=== PATIENT | female | born 1985 | race Caucasian/White ===

== ENCOUNTER 2021-11-16 09:59 | Inpatient (IN) | payer BC, OTHER ==
[~2021-11-16] VITALS: Ht 162.6 cm; Wt 54.5 kg
[~2021-11-16 09:59] MED LIST: BLOO1EAC70 MC; ESOM40CA PO; ETON1VAG VG; INSU100C4 SQ; INSU100I12 SQ; INSU100V12 SQ; INSU100V37 SQ; ZOF4T PO
[2021-11-16] MEDS ORDERED: ringers solution, lacted 1,000 ML IV ONE (10:35)
[2021-11-16 10:47] LABS: BASOPHILS # (AUTO) 0.1 X10'3 (0-0.2); BASOPHILS % (AUTO) 0.4 % (0-1); EOSINOPHILS % (AUTO) 0.1 % (0-6); HEMATOCRIT 39.1 % (35.0-45.0); HEMOGLOBIN 13.2 g/dl (12.0-16.0); LYMPHOCYTES # (AUTO) 1.6 X10'3 (1.1-4.8); LYMPHOCYTES % (AUTO) 10.1 % (21-51); MEAN CORPUSCULAR HGB CONC 33.7 g/dL (33.0-36.5); MEAN CORPUSCULAR VOLUME 94.8 FL (78-98); MEAN PLATELET VOLUME 8.4 FL (7.4-10.4); MONOCYTES # (AUTO) 0.4 X10'3 (0-0.9); MONOCYTES % (AUTO) 2.3 % (2-12); NEUTROPHILS # (AUTO) 13.6 X10'3 (1.8-7.7); NEUTROPHILS % (AUTO) 87.1 % (42-75); PLATELET COUNT 308 X10'3 (140-440); RED BLOOD COUNT 4.12 X10'6 (4.20-5.60); WHITE BLOOD COUNT 15.7 X10'3 (4.5-11.0)
[2021-11-16 11:18] LABS: CLARITY,URINE CLEAR (Clear); COLOR,URINE YELLOW (Yellow); GLUCOSE, URINE 500 mg/dl (Neg); KETONES,URINE >=80 mg/dl (Neg); LEUKOCYTE ESTERASE ,URINE NEGATIVE (Neg); NITRITES, URINE NEGATIVE (Neg); OCCULT BLOOD,URINE NEGATIVE (Neg); PH,URINE 5.5 (4.8-8.0); PROTEIN,URINE NEGATIVE (Neg); UROBILINOGEN,URINE 0.2 E.U/dL (0.2-1.0)
[2021-11-16 11:19] LABS: ALANINE AMINOTRANSFERASE 35 U/L (12-78); ALBUMIN 3.8 G/DL (3.4-5.0); ALKALINE PHOSPHATASE 89 IU/L (46-116); ANION GAP 18 (8-16); ASPARTATE AMINO TRANSFERASE 29 U/L (10-37); BILIRUBIN,TOTAL 0.4 MG/DL (0.1-1.0); BLOOD UREA NITROGEN 14 MG/DL (7-18); BUN/CREATININE RATIO 14.6 (6.6-38.0); CALCIUM 8.8 MG/DL (8.5-10.1); CHLORIDE 102 MMOL/L (99-107); CREATININE 0.96 MG/DL (0.40-0.90); GLUCOSE 179 MG/DL (70-104); LIPASE 69 U/L (73-393); MAGNESIUM 1.9 MG/DL (1.5-2.4); POTASSIUM 3.9 MMOL/L (3.5-5.1); SODIUM 139 MMOL/L (135-145); TOTAL CARBON DIOXIDE 19.2 MMOL/L (24-32); TOTAL PROTEIN 7.7 G/DL (6.4-8.2); eGFR 67 ML/MIN
[2021-11-16 11:22] LABS: UA COLLECTION TYPE CLN CATCH MIDSTREAM
[2021-11-16 11:26] LABS: URINE AMPHETAMINE SCREEN NEGATIVE (Neg); URINE BARBITUATE SCREEN NEGATIVE (Neg); URINE BENZODIAZEPINES SCREEN NEGATIVE (Neg); URINE CANNABINOID SCREEN POSITIVE (Neg); URINE COCAINE SCREEN NEGATIVE (Neg); URINE METHADONE SCREEN NEGATIVE (Neg); URINE OPIATE SCREEN NEGATIVE (Neg); URINE PHENCYCLIDINE SCREEN NEGATIVE (Neg)
[2021-11-16] MEDS ORDERED: Insulin ASPART (NovoLOG) pen SQ ONE (11:50)
[2021-11-16 11:51] LABS: SQUAMOUS EPITHELIAL CELL,UR FEW /LPF (FEW); WBC,URINE 0-4 /HPF (0-4)
[2021-11-16 11:52] LABS: BACTERIA,URINE NONE SEEN /HPF (Neg); RBC,URINE NONE SEEN /HPF (0-2)
[2021-11-16] MEDS ORDERED: insulin Lispro (HumaLOG) vial - multi-dose SQ ONE (12:05)
[2021-11-16] MEDS: potassium 20mEq/D5LR 1,000 ML IV SCH (12:16)
[2021-11-16] MEDS ORDERED: magnesium 2GM in 50ml NS 50 ML IV PRN (12:20)
[2021-11-16] MEDS ORDERED: magnesium 4gm in 100ml NS 100 ML IV PRN (12:20)
[2021-11-16] MEDS ORDERED: insulin regular, human U-100 3ml vial - multi-dose IV PRN (12:20)
[2021-11-16] MEDS ORDERED: sodium bicarbonate (8.4%) inj. 100 MEQ in dextrose 5% water 500ml 500 ML IV PRN (12:20)
[2021-11-16] MEDS ORDERED: acetaminophen 325mg tablet PO PRN (12:20)
[2021-11-16] MEDS ORDERED: POTASSIUM BICARB 20meq eff tab 20 MEQ TABLET.EFF PO PRN ×2 (12:20)
[2021-11-16] MEDS ORDERED: sodium phosphate inj. 15 MMOL in dextrose 5%-water 250 ML IV PRN (12:20)
[2021-11-16] MEDS ORDERED: normal saline 1000ml 1,000 ML IV SCH (12:20)
[2021-11-16] MEDS ORDERED: magnesium hydroxide 30ml (MOM) UD suspension PO PRN (12:20)
[2021-11-16] MEDS ORDERED: sodium phosphate inj. 30 MMOL in dextrose 5%-water 250 ML IV PRN (12:20)
[2021-11-16] MEDS ORDERED: sodium bicarbonate (8.4%) inj. 50 MEQ in dextrose 5% water 500ml 250 ML IV PRN (12:20)
[2021-11-16] MEDS ORDERED: mag hydrox/Alum hydrox/simeth 30ml oral suspension PO PRN (12:20)
--- NOTE | 2021-11-16 12:45 | NUR ---
Pt c/o n/v and palpations after the new IVF of D5LR with k started. Stopped fluids.
[2021-11-16 12:56] LABS: ALBUMIN 3.7 G/DL (3.4-5.0); ANION GAP 19 (8-16); BLOOD UREA NITROGEN 12 MG/DL (7-18); CALCIUM 8.8 MG/DL (8.5-10.1); CHLORIDE 99 MMOL/L (99-107); GLUCOSE 215 MG/DL (70-104); PHOSPHORUS 2.7 MG/DL (2.3-4.5); POTASSIUM 4.4 MMOL/L (3.5-5.1); SODIUM 135 MMOL/L (135-145); TOTAL CARBON DIOXIDE 17.5 MMOL/L (24-32); eGFR 82 ML/MIN
[2021-11-16] MEDS: normal saline 1000ml 1,000 ML IV SCH ×3 (13:15→20:20)
[2021-11-16] MEDS: nicotine 14mg patch - 24hr TD SCH (13:25)
--- NOTE | 2021-11-16 13:47 | NUR ---
Report given to BOOGIE Groves.
[2021-11-16] MEDS: ondansetron/PF 4mg/2ml inj IV PRN (13:54)
[2021-11-16 14:00] VITALS: BP 108/54
--- NOTE | 2021-11-16 14:14 | NUR ---
Patient in room PCU 3012. I have received report from Cindy HYMAN and had the opportunity to ask questions and assume patient care.
--- NOTE | 2021-11-16 14:15 | NUR ---
PAGER ID: [phone] MESSAGE: [id number] Nargis Ruiz 1410 Blood sugar 300. [phone] Dorothy
[2021-11-16] MEDS ORDERED: INSU100V46 SQ (14:43)
[2021-11-16] MEDS ORDERED: LANTUS SQ (14:43)
[2021-11-16] MEDS ORDERED: LEVO75TA98 PO (14:43)
--- NOTE | 2021-11-16 15:57 | NUR ---
PAGER ID: [phone] MESSAGE: [id number] Nargis Ruiz is vomiting blood tinged emesis, had Zofran IV, can we have something else ordered for vomiting? [phone] Dorothy Thank you!
[2021-11-16] MEDS: metoclopramide 5 mg/ml inj IV PRN (17:02)
--- NOTE | 2021-11-16 19:30 | NUR ---
Problems reprioritized. Patient report given, questions answered & plan of care reviewed with Clarence HYMAN.
[2021-11-16] MEDS: Insulin Reg/NS 100units/100mL 100 ML IV SCH (19:36)
[2021-11-16] MEDS: K and/or MAG REPLACEMENT MC SCH (20:00)
[2021-11-16] MEDS: docusate sod 100mg capsule PO SCH (20:00)
[2021-11-16] MEDS: enoxaparin 40mg/0.4ml syringe SQ SCH (21:08)
[2021-11-16 22:00] VITALS: BP 116/58
[2021-11-16] MEDS: guaiFENesin/codeine phos 10ml UD oral syrup PO PRN (22:06)
[2021-11-16] MEDS: potassium CL 20mEq in D5-1/2NS 1,000 ML IV PRN (23:35)
[2021-11-17] MEDS: normal saline 1000ml 1,000 ML IV SCH ×6 (00:20→20:20)
[2021-11-17 02:00] VITALS: BP 100/50
[2021-11-17] MEDS: potassium CL 20mEq in D5-1/2NS 1,000 ML IV PRN ×3 (04:27→22:55)
[2021-11-17] MEDS ORDERED: Insulin Reg/NS 100units/100mL 100 ML IV SCH (04:35)
--- NOTE | 2021-11-17 04:48 | NUR ---
Pt has was vomiting multiple times earlier in the shift. emesis was watery and had a green tint. pt complained of sore thought. Doctor ordered Robitussin with codeine. pt complained of shortness of breath. Applied NC 2 liters. O2 saturation readings were the same with and without the O2. 97 to 98%. 2200 pt temp 99.1, 0200 pt temp 100.2
[2021-11-17 06:00] VITALS: BP 106/72
--- NOTE | 2021-11-17 06:36 | NUR ---
Report was given to Laina HYMAN
[2021-11-17 07:23] LABS: BASOPHILS % (AUTO) 0.1 % (0-1); EOSINOPHILS % (AUTO) 0 % (0-6); HEMATOCRIT 35.3 % (35.0-45.0); LYMPHOCYTES # (AUTO) 2.2 X10'3 (1.1-4.8); LYMPHOCYTES % (AUTO) 9.1 % (21-51); MEAN CORPUSCULAR HEMOGLOBIN 31.8 PG (27.0-31.0); MEAN CORPUSCULAR HGB CONC 34.1 g/dL (33.0-36.5); MEAN CORPUSCULAR VOLUME 93.5 FL (78-98); MEAN PLATELET VOLUME 8.3 FL (7.4-10.4); MONOCYTES # (AUTO) 1.9 X10'3 (0-0.9); MONOCYTES % (AUTO) 7.6 % (2-12); NEUTROPHILS # (AUTO) 20.5 X10'3 (1.8-7.7); NEUTROPHILS % (AUTO) 83.2 % (42-75); PLATELET COUNT 368 X10'3 (140-440); RED BLOOD COUNT 3.77 X10'6 (4.20-5.60); WHITE BLOOD COUNT 24.6 X10'3 (4.5-11.0)
[2021-11-17 07:37] LABS: ALBUMIN 3.4 G/DL (3.4-5.0); ANION GAP 11 (8-16); BLOOD UREA NITROGEN 10 MG/DL (7-18); BUN/CREATININE RATIO 10.3 (6.6-38.0); CALCIUM 8.1 MG/DL (8.5-10.1); CHLORIDE 108 MMOL/L (99-107); CREATININE 0.97 MG/DL (0.40-0.90); GLUCOSE 108 MG/DL (70-104); MAGNESIUM 1.7 MG/DL (1.5-2.4); PHOSPHORUS 1.3 MG/DL (2.3-4.5); SODIUM 137 MMOL/L (135-145); TOTAL CARBON DIOXIDE 17.6 MMOL/L (24-32); eGFR 66 ML/MIN
[2021-11-17] MEDS: potassium 20mEq/D5LR 1,000 ML IV SCH (07:50)
[2021-11-17] MEDS: nicotine 14mg patch - 24hr TD SCH (08:00)
[2021-11-17] MEDS: docusate sod 100mg capsule PO SCH ×2 (08:00→19:53)
[2021-11-17] MEDS: K and/or MAG REPLACEMENT MC SCH (08:00)
[2021-11-17] MEDS: levoTHYROXINE 75mcg tablet PO SCH (08:00)
[2021-11-17] MEDS ORDERED: CefTRIAXone/D5W-Rocephin 1gm 50 ML IV ONE (08:10)
--- NOTE | 2021-11-17 08:14 | NUR ---
Initial: Pt admitted w/ DKA, has hx of T1DM per EMR, however there is no A1c for this pt. TC to RN recommendation to obtain A1c if MD agreeable. Pt currently NPO. Limited nutrition interventions at this time, will continue to monitor. Recs; 1. Advance to Carb control diet as tolerated 2. Obtain HbA1c if MD agreeable 3. Bowel care per rx 4. Scaled wts 5. Monitor need for DM ed pending A1c Addendum: 11/17/21 at [address] Amended: Links added.
[2021-11-17] MEDS: insulin Lispro (HumaLOG) vial - multi-dose SQ SCH ×3 (09:00→18:00)
--- NOTE | 2021-11-17 09:50 | NUR ---
Paged Dr. Valdivia regarding pts BS still trending down. PAGER ID: [phone] MESSAGE: [id number], Sara [email or web address] Pts blood sugar is now 68 after the popsicle. It didn't help the sugar level or the dry heaves. Would you like me to increase the D5 rate? Laina U [phone].
[2021-11-17] MEDS: ondansetron/PF 4mg/2ml inj IV PRN ×2 (10:52→23:09)
[2021-11-17 11:00] VITALS: BP 105/59
--- NOTE | 2021-11-17 13:25 | NUR ---
Paged Dr. Valdivia regarding if i can switch fluids. PAGER ID: [phone] MESSAGE: [id number], Sara Barillas. Pt needs new bag of fluids hung, do you mind if I switch her to the KCL 20meq in D5W 1/2 NS? Instead of the lactated ringers solution? It is already available in the [facility]. Laina [facility] [id number].
--- NOTE | 2021-11-17 13:38 | NUR ---
Paged Dr. Valdivia regarding patient needing an A1C since shes never had one. PAGER ID: [phone] MESSAGE: [id number], Sara Barillas. Retail Customer Service Specialist just called and asked if you wanted to order an A1C, apparently she has never had one. Laina [facility] [id number].
[2021-11-17] MEDS: metoclopramide 5 mg/ml inj IV PRN (14:10)
[2021-11-17 15:41] LABS: HEMOGLOBIN A1C 8.3 % (4.5-6.2)
[2021-11-17 16:36] LABS: ANION GAP 15 (8-16); BLOOD UREA NITROGEN 6 MG/DL (7-18); BUN/CREATININE RATIO 8.3 (6.6-38.0); CALCIUM 7.7 MG/DL (8.5-10.1); CHLORIDE 105 MMOL/L (99-107); CREATININE 0.72 MG/DL (0.40-0.90); GLUCOSE 165 MG/DL (70-104); POTASSIUM 3.3 MMOL/L (3.5-5.1); SODIUM 136 MMOL/L (135-145); TOTAL CARBON DIOXIDE 16.3 MMOL/L (24-32); eGFR > 90 ML/MIN
[2021-11-17 17:41] LABS: URINE HCG NEGATIVE (NEG)
[2021-11-17] MEDS: Insulin Reg/NS 100units/100mL 100 ML IV SCH (18:44)
[2021-11-17] MEDS ORDERED: iohexol 300mg/ml 100ml inj. ONE (19:00)
--- NOTE | 2021-11-17 19:01 | NUR ---
Problems reprioritized. Patient report given, questions answered & plan of care reviewed with Clarence HYMAN, patient stable at transfer of care.
[2021-11-17] MEDS: potassium CL 10mEq/100ml bag 100 ML IV PRN ×3 (19:50→23:58)
[2021-11-17] MEDS: enoxaparin 40mg/0.4ml syringe SQ SCH (19:53)
[2021-11-17] MEDS: guaiFENesin/codeine phos 10ml UD oral syrup PO PRN (22:17)
[2021-11-18] MEDS: normal saline 1000ml 1,000 ML IV SCH ×6 (00:20→20:20)
[2021-11-18] MEDS: metoclopramide 5 mg/ml inj IV PRN (00:55)
[2021-11-18] MEDS: potassium CL 10mEq/100ml bag 100 ML IV PRN (01:03)
[2021-11-18 02:00] VITALS: BP 119/65
[2021-11-18] MEDS: potassium CL 20mEq in D5-1/2NS 1,000 ML IV PRN (03:07)
[2021-11-18] MEDS: Insulin Reg/NS 100units/100mL 100 ML IV SCH (04:20)
[2021-11-18] MEDS: ondansetron/PF 4mg/2ml inj IV PRN (05:19)
[2021-11-18 06:00] VITALS: BP 117/75
--- NOTE | 2021-11-18 06:00 | NUR ---
recieved report from Clarence HYMAN, assuming care
[2021-11-18] MEDS: dextrose 50%-water 50ml dispensing syringe IV PRN (07:06)
[2021-11-18] MEDS: levoTHYROXINE 75mcg tablet PO SCH (08:00)
[2021-11-18] MEDS: nicotine 14mg patch - 24hr TD SCH (08:00)
[2021-11-18] MEDS: docusate sod 100mg capsule PO SCH ×2 (08:00→20:00)
[2021-11-18] MEDS: K and/or MAG REPLACEMENT MC SCH ×2 (08:00→20:00)
[2021-11-18 08:01] LABS: BASOPHILS % (AUTO) 0.3 % (0-1); EOSINOPHILS % (AUTO) 0 % (0-6); HEMATOCRIT 36.6 % (35.0-45.0); HEMOGLOBIN 12.2 g/dl (12.0-16.0); LYMPHOCYTES # (AUTO) 1.9 X10'3 (1.1-4.8); LYMPHOCYTES % (AUTO) 13.6 % (21-51); MEAN CORPUSCULAR HEMOGLOBIN 31.2 PG (27.0-31.0); MEAN CORPUSCULAR HGB CONC 33.2 g/dL (33.0-36.5); MEAN CORPUSCULAR VOLUME 93.7 FL (78-98); MEAN PLATELET VOLUME 9.7 FL (7.4-10.4); MONOCYTES # (AUTO) 0.8 X10'3 (0-0.9); MONOCYTES % (AUTO) 5.9 % (2-12); NEUTROPHILS # (AUTO) 11.1 X10'3 (1.8-7.7); NEUTROPHILS % (AUTO) 80.2 % (42-75); PLATELET COUNT 217 X10'3 (140-440); RED BLOOD COUNT 3.91 X10'6 (4.20-5.60); RED CELL DISTRIBUTION WIDTH 13.1 % (11.5-14.5); WHITE BLOOD COUNT 13.8 X10'3 (4.5-11.0)
[2021-11-18] MEDS: CefTRIAXone/D5W-Rocephin 1gm 50 ML IV SCH (08:37)
[2021-11-18 08:38] LABS: ALANINE AMINOTRANSFERASE 37 U/L (12-78); ALKALINE PHOSPHATASE 75 IU/L (46-116); ANION GAP 11 (8-16); ASPARTATE AMINO TRANSFERASE 44 U/L (10-37); BILIRUBIN,TOTAL 0.4 MG/DL (0.1-1.0); BLOOD UREA NITROGEN 2 MG/DL (7-18); BUN/CREATININE RATIO 3.8 (6.6-38.0); CALCIUM 7.5 MG/DL (8.5-10.1); CHLORIDE 106 MMOL/L (99-107); CREATININE 0.52 MG/DL (0.40-0.90); MAGNESIUM 1.5 MG/DL (1.5-2.4); POTASSIUM 3.6 MMOL/L (3.5-5.1); SODIUM 136 MMOL/L (135-145); TOTAL CARBON DIOXIDE 18.7 MMOL/L (24-32); TOTAL PROTEIN 6.1 G/DL (6.4-8.2); eGFR > 90 ML/MIN
[2021-11-18 08:42] LABS: GLUCOSE 41 MG/DL (70-104)
[2021-11-18] MEDS ORDERED: LIDOcaine Viscous 15ml cup MM PRN (08:45)
[2021-11-18] MEDS: proCHLORperazine 10 MG/2 ml inj IV PRN ×2 (08:58→19:12)
[2021-11-18] MEDS: insulin Lispro (HumaLOG) vial - multi-dose SQ SCH ×3 (09:00→18:00)
--- NOTE | 2021-11-18 09:12 | NUR ---
Per Dr Valdivia. Added compazine and lidocaine swish and spit per MD orders. MD ordered HIDA scan but will hold off for now and consult Dr Mason. Ok to keep insulin gtt off and start Kcl 20Meq in D5 @ 150. Decrease to 100ml/hr if BG higher.
[2021-11-18] MEDS ORDERED: NORMAL SALINE IV ONE (09:35)
[2021-11-18] MEDS ORDERED: SINCALIDE IV ONE (09:35)
[2021-11-18] MEDS: Potassium Cl inj 20 MEQ in dextrose 5%-water 990 ML IV SCH ×2 (10:43→19:45)
--- NOTE | 2021-11-18 11:04 | NUR ---
Pt taken to Hida Scan in Nuc Med area via W/C with IV Insulin and fluid drips. Addendum: 11/18/21 at 1134 by Rafita Siu RN Amended: Links added.
[2021-11-18 13:29] LABS: PHOSPHORUS 0.9 MG/DL (2.3-4.5)
[2021-11-18 14:32] LABS: H PYLORI ANTIBODY NEGATIVE (Neg)
--- NOTE | 2021-11-18 14:47 | NUR ---
F/u: Patient's A1c is 8.3%. Per EMR pt with emesis today. Pt would benefit from DM education once appropriate. Will continue to follow. Addendum: 11/18/21 at [address] Amended: Links added.
[2021-11-18 15:00] VITALS: BP 135/77
--- NOTE | 2021-11-18 16:06 | NUR ---
Paged PICC nurse [phone]. Nargis Ruiz. Pls assist with midline. Attempted PIV x 4. DKA patient with multiple replacements. Thanks
--- NOTE | 2021-11-18 16:08 | NUR ---
pt stated that she is giving permission to speak with her sister Kavitha Tejeda MD
[2021-11-18 16:45] LABS: ALANINE AMINOTRANSFERASE 42 U/L (12-78); ALBUMIN 3.1 G/DL (3.4-5.0); ALKALINE PHOSPHATASE 84 IU/L (46-116); ANION GAP 12 (8-16); ASPARTATE AMINO TRANSFERASE 44 U/L (10-37); BILIRUBIN,TOTAL 0.5 MG/DL (0.1-1.0); BLOOD UREA NITROGEN 2 MG/DL (7-18); BUN/CREATININE RATIO 3.3 (6.6-38.0); CHLORIDE 99 MMOL/L (99-107); CREATININE 0.61 MG/DL (0.40-0.90); GLUCOSE 146 MG/DL (70-104); POTASSIUM 3.3 MMOL/L (3.5-5.1); SODIUM 133 MMOL/L (135-145); TOTAL CARBON DIOXIDE 21.6 MMOL/L (24-32); TOTAL PROTEIN 6.2 G/DL (6.4-8.2); eGFR > 90 ML/MIN
[2021-11-18 16:49] LABS: BASOPHILS % (AUTO) 0.1 % (0-1); EOSINOPHILS % (AUTO) 0 % (0-6); HEMATOCRIT 36.3 % (35.0-45.0); HEMOGLOBIN 12.1 g/dl (12.0-16.0); LYMPHOCYTES # (AUTO) 1.6 X10'3 (1.1-4.8); LYMPHOCYTES % (AUTO) 13.8 % (21-51); MEAN CORPUSCULAR HEMOGLOBIN 31.3 PG (27.0-31.0); MEAN CORPUSCULAR HGB CONC 33.5 g/dL (33.0-36.5); MEAN CORPUSCULAR VOLUME 93.5 FL (78-98); MEAN PLATELET VOLUME 8.2 FL (7.4-10.4); MONOCYTES # (AUTO) 0.7 X10'3 (0-0.9); NEUTROPHILS # (AUTO) 9.5 X10'3 (1.8-7.7); NEUTROPHILS % (AUTO) 80.1 % (42-75); PLATELET COUNT 264 X10'3 (140-440); RED BLOOD COUNT 3.88 X10'6 (4.20-5.60); RED CELL DISTRIBUTION WIDTH 12.9 % (11.5-14.5); WHITE BLOOD COUNT 11.8 X10'3 (4.5-11.0)
--- NOTE | 2021-11-18 17:05 | NUR ---
Paged PAGER ID: [phone] MESSAGE: [id number]. Sara. Call me re: new lab values pls. Marc, Krystin [phone]
--- NOTE | 2021-11-18 17:25 | NUR ---
Per MD Valdivia: CO2 21.6 and anion gap 12. Pt is still not eating and still having emesis. Per MD, keep on gtt as is right now through NOC.
[2021-11-18 18:00] VITALS: BP 128/67
--- NOTE | 2021-11-18 18:00 | NUR ---
Patient in room PCU 3012. I have received report from Krystin HYMAN and had the opportunity to ask questions and assume patient care.
--- NOTE | 2021-11-18 18:58 | NUR ---
Student documentation: I have reviewed and agree with all interventions, assessments performed and documented by Soheila.
[2021-11-18] MEDS: enoxaparin 40mg/0.4ml syringe SQ SCH (20:00)
[2021-11-18 21:52] LABS: BASOPHILS % (AUTO) 0.1 % (0-1); EOSINOPHILS % (AUTO) 0.1 % (0-6); HEMATOCRIT 34.4 % (35.0-45.0); HEMOGLOBIN 11.8 g/dl (12.0-16.0); LYMPHOCYTES # (AUTO) 1.7 X10'3 (1.1-4.8); LYMPHOCYTES % (AUTO) 16.7 % (21-51); MEAN CORPUSCULAR HGB CONC 34.2 g/dL (33.0-36.5); MEAN CORPUSCULAR VOLUME 93.6 FL (78-98); MEAN PLATELET VOLUME 8.6 FL (7.4-10.4); MONOCYTES # (AUTO) 0.5 X10'3 (0-0.9); MONOCYTES % (AUTO) 5.3 % (2-12); NEUTROPHILS # (AUTO) 7.9 X10'3 (1.8-7.7); NEUTROPHILS % (AUTO) 77.8 % (42-75); PLATELET COUNT 235 X10'3 (140-440); RED BLOOD COUNT 3.68 X10'6 (4.20-5.60); WHITE BLOOD COUNT 10.1 X10'3 (4.5-11.0)
[2021-11-18 22:00] VITALS: BP 125/68
[2021-11-18 22:01] LABS: ALANINE AMINOTRANSFERASE 40 U/L (12-78); ALBUMIN 3.1 G/DL (3.4-5.0); ALKALINE PHOSPHATASE 85 IU/L (46-116); ANION GAP 11 (8-16); ASPARTATE AMINO TRANSFERASE 41 U/L (10-37); BILIRUBIN,TOTAL 0.5 MG/DL (0.1-1.0); CHLORIDE 101 MMOL/L (99-107); GLUCOSE 132 MG/DL (70-104); POTASSIUM 3.1 MMOL/L (3.5-5.1); SODIUM 136 MMOL/L (135-145); TOTAL CARBON DIOXIDE 24.2 MMOL/L (24-32); TOTAL PROTEIN 6.1 G/DL (6.4-8.2); eGFR > 90 ML/MIN
[2021-11-18 22:30] LABS: CREATININE 0.51 MG/DL (0.40-0.90)
[2021-11-18 22:34] LABS: BLOOD UREA NITROGEN 1 MG/DL (7-18)
[2021-11-19] MEDS: Insulin Reg/NS 100units/100mL 100 ML IV SCH (00:20)
[2021-11-19] MEDS: normal saline 1000ml 1,000 ML IV SCH ×6 (00:20→20:20)
[2021-11-19 02:00] VITALS: BP 120/72
[2021-11-19 04:48] LABS: BASOPHILS % (AUTO) 0.2 % (0-1); EOSINOPHILS % (AUTO) 0 % (0-6); HEMATOCRIT 36.9 % (35.0-45.0); HEMOGLOBIN 12.3 g/dl (12.0-16.0); LYMPHOCYTES # (AUTO) 1.2 X10'3 (1.1-4.8); LYMPHOCYTES % (AUTO) 11.4 % (21-51); MEAN CORPUSCULAR HEMOGLOBIN 31.6 PG (27.0-31.0); MEAN CORPUSCULAR HGB CONC 33.5 g/dL (33.0-36.5); MEAN CORPUSCULAR VOLUME 94.3 FL (78-98); MEAN PLATELET VOLUME 9.1 FL (7.4-10.4); MONOCYTES # (AUTO) 0.6 X10'3 (0-0.9); NEUTROPHILS # (AUTO) 8.8 X10'3 (1.8-7.7); NEUTROPHILS % (AUTO) 82.4 % (42-75); PLATELET COUNT 261 X10'3 (140-440); RED BLOOD COUNT 3.91 X10'6 (4.20-5.60); WHITE BLOOD COUNT 10.7 X10'3 (4.5-11.0)
[2021-11-19 04:56] LABS: ALANINE AMINOTRANSFERASE 39 U/L (12-78); ALBUMIN 3.2 G/DL (3.4-5.0); ALKALINE PHOSPHATASE 90 IU/L (46-116); ANION GAP 15 (8-16); ASPARTATE AMINO TRANSFERASE 36 U/L (10-37); BILIRUBIN,TOTAL 0.7 MG/DL (0.1-1.0); BLOOD UREA NITROGEN 2 MG/DL (7-18); BUN/CREATININE RATIO 3.1 (6.6-38.0); CALCIUM 8.4 MG/DL (8.5-10.1); CHLORIDE 98 MMOL/L (99-107); CREATININE 0.65 MG/DL (0.40-0.90); GLUCOSE 279 MG/DL (70-104); MAGNESIUM 1.5 MG/DL (1.5-2.4); POTASSIUM 3.2 MMOL/L (3.5-5.1); SODIUM 134 MMOL/L (135-145); TOTAL CARBON DIOXIDE 20.9 MMOL/L (24-32); TOTAL PROTEIN 6.3 G/DL (6.4-8.2); eGFR > 90 ML/MIN
[2021-11-19] MEDS: proCHLORperazine 10 MG/2 ml inj IV PRN (05:10)
[2021-11-19 06:00] VITALS: BP 133/86
--- NOTE | 2021-11-19 07:19 | NUR ---
Problems reprioritized. Patient report given, questions answered & plan of care reviewed with Nya HYMAN.
[2021-11-19] MEDS: nicotine 14mg patch - 24hr TD SCH (08:00)
[2021-11-19] MEDS: levoTHYROXINE 75mcg tablet PO SCH (08:00)
[2021-11-19] MEDS: K and/or MAG REPLACEMENT MC SCH ×2 (08:00→20:00)
[2021-11-19] MEDS: CefTRIAXone/D5W-Rocephin 1gm 50 ML IV SCH (08:00)
[2021-11-19] MEDS: docusate sod 100mg capsule PO SCH ×2 (08:00→20:00)
[2021-11-19] MEDS: Potassium Cl inj 20 MEQ in dextrose 5%-water 990 ML IV SCH ×2 (08:19→14:18)
[2021-11-19] MEDS: insulin Lispro (HumaLOG) vial - multi-dose SQ SCH ×3 (09:00→18:00)
[2021-11-19 09:50] LABS: ALANINE AMINOTRANSFERASE 36 U/L (12-78); ALBUMIN 2.9 G/DL (3.4-5.0); ALBUMIN/GLOBULIN RATIO 0.9 (1.1-1.5); ALKALINE PHOSPHATASE 86 IU/L (46-116); ANION GAP 13 (8-16); ASPARTATE AMINO TRANSFERASE 27 U/L (10-37); BILIRUBIN,TOTAL 0.5 MG/DL (0.1-1.0); BLOOD UREA NITROGEN 3 MG/DL (7-18); BUN/CREATININE RATIO 3.8 (6.6-38.0); CALCIUM 8.3 MG/DL (8.5-10.1); CHLORIDE 97 MMOL/L (99-107); CREATININE 0.79 MG/DL (0.40-0.90); GLUCOSE 227 MG/DL (70-104); POTASSIUM 3.1 MMOL/L (3.5-5.1); SODIUM 133 MMOL/L (135-145); TOTAL CARBON DIOXIDE 23.4 MMOL/L (24-32); TOTAL PROTEIN 6.1 G/DL (6.4-8.2); eGFR 83 ML/MIN
[2021-11-19] MEDS: potassium CL 10mEq/100ml bag 100 ML IV PRN ×2 (10:21→11:45)
[2021-11-19 11:00] VITALS: BP 135/76
[2021-11-19] MEDS ORDERED: fluconazole-Diflucan 200mg/NS 100 ML IV SCH (11:35)
[2021-11-19] MEDS: pantoprazole 40MG/NS 100ML BAG 100 ML IV SCH ×2 (11:40→11:55)
[2021-11-19] MEDS: sucralfate 1 gm tablet PO SCH ×3 (12:00→21:33)
--- NOTE | 2021-11-19 12:24 | NUR ---
Pt. remains unable to eat.
[2021-11-19 13:31] LABS: ALANINE AMINOTRANSFERASE 34 U/L (12-78); ALKALINE PHOSPHATASE 89 IU/L (46-116); ANION GAP 17 (8-16); ASPARTATE AMINO TRANSFERASE 23 U/L (10-37); BILIRUBIN,TOTAL 0.6 MG/DL (0.1-1.0); BLOOD UREA NITROGEN 1 MG/DL (7-18); BUN/CREATININE RATIO 1.8 (6.6-38.0); CHLORIDE 96 MMOL/L (99-107); CREATININE 0.57 MG/DL (0.40-0.90); GLUCOSE 228 MG/DL (70-104); POTASSIUM 3.5 MMOL/L (3.5-5.1); SODIUM 134 MMOL/L (135-145); TOTAL CARBON DIOXIDE 21.5 MMOL/L (24-32); TOTAL PROTEIN 6.1 G/DL (6.4-8.2); eGFR > 90 ML/MIN
[2021-11-19 15:00] VITALS: BP 137/79
--- NOTE | 2021-11-19 16:45 | NUR ---
Dr. Valdivia wanted to try 2units/hr insulin drip to close the anion gap.
--- NOTE | 2021-11-19 16:46 | NUR ---
Pt. has difficulty swallowing. She refused oral medications today. A total of 900ml of NS was given. The DKA protocol maintained the glucose levels close to 200. Pt. is started on new IV medications for her throat issues and gag reflex complication. Continues to refuse oral intake at this time.
[2021-11-19 17:13] LABS: ALANINE AMINOTRANSFERASE 34 U/L (12-78); ALBUMIN/GLOBULIN RATIO 0.9 (1.1-1.5); ALKALINE PHOSPHATASE 91 IU/L (46-116); ANION GAP 15 (8-16); ASPARTATE AMINO TRANSFERASE 20 U/L (10-37); BILIRUBIN,TOTAL 0.4 MG/DL (0.1-1.0); BLOOD UREA NITROGEN 1 MG/DL (7-18); BUN/CREATININE RATIO 1.6 (6.6-38.0); CALCIUM 8.2 MG/DL (8.5-10.1); CHLORIDE 97 MMOL/L (99-107); CREATININE 0.64 MG/DL (0.40-0.90); GLUCOSE 192 MG/DL (70-104); POTASSIUM 3.2 MMOL/L (3.5-5.1); SODIUM 136 MMOL/L (135-145); TOTAL CARBON DIOXIDE 24.4 MMOL/L (24-32); TOTAL PROTEIN 6.4 G/DL (6.4-8.2); eGFR > 90 ML/MIN
[2021-11-19 18:00] VITALS: BP 138/78
--- NOTE | 2021-11-19 18:30 | NUR ---
Patient in room PCU 3012. I have received report from Nya HYMAN and had the opportunity to ask questions and assume patient care.
[2021-11-19] MEDS ORDERED: pantoprazole 40MG/NS 100ML BAG 100 ML IV SCH (20:00)
[2021-11-19] MEDS: enoxaparin 40mg/0.4ml syringe SQ SCH (21:35)
[2021-11-19 21:36] LABS: ANION GAP 11 (8-16); BLOOD UREA NITROGEN 1 MG/DL (7-18); BUN/CREATININE RATIO 1.7 (6.6-38.0); CALCIUM 8.2 MG/DL (8.5-10.1); CHLORIDE 99 MMOL/L (99-107); GLUCOSE 142 MG/DL (70-104); MAGNESIUM 1.5 MG/DL (1.5-2.4); PHOSPHORUS 1.3 MG/DL (2.3-4.5); POTASSIUM 3.2 MMOL/L (3.5-5.1); SODIUM 135 MMOL/L (135-145); TOTAL CARBON DIOXIDE 25.1 MMOL/L (24-32); eGFR > 90 ML/MIN
[2021-11-19] MEDS: Neutra Phos packet PO PRN (22:00)
[2021-11-19] MEDS ORDERED: magnesium 4gm in 100ml NS 100 ML IV PRN (23:45)
[2021-11-19] MEDS ORDERED: magnesium 2GM in 50ml NS 50 ML IV PRN (23:45)
[2021-11-19] MEDS ORDERED: magnesium Cl slow-release 64mg tablet PO PRN (23:45)
[2021-11-19] MEDS ORDERED: POTASSIUM BICARB 20meq eff tab 20 MEQ TABLET.EFF PO PRN (23:45)
[2021-11-20] MEDS: normal saline 1000ml 1,000 ML IV SCH ×2 (00:20→04:20)
[2021-11-20 02:00] VITALS: BP 127/71
[2021-11-20 02:04] LABS: MAGNESIUM 1.5 MG/DL (1.5-2.4)
[2021-11-20 03:33] LABS: ALANINE AMINOTRANSFERASE 32 U/L (12-78); ALBUMIN 2.9 G/DL (3.4-5.0); ALBUMIN/GLOBULIN RATIO 0.9 (1.1-1.5); ALKALINE PHOSPHATASE 82 IU/L (46-116); ANION GAP 9 (8-16); ASPARTATE AMINO TRANSFERASE 18 U/L (10-37); BILIRUBIN,TOTAL 0.4 MG/DL (0.1-1.0); CALCIUM 8.3 MG/DL (8.5-10.1); CHLORIDE 100 MMOL/L (99-107); GLUCOSE 104 MG/DL (70-104); PHOSPHORUS 1.9 MG/DL (2.3-4.5); SODIUM 137 MMOL/L (135-145); TOTAL CARBON DIOXIDE 28.4 MMOL/L (24-32); eGFR > 90 ML/MIN
[2021-11-20] MEDS: Neutra Phos packet PO PRN (03:39)
[2021-11-20 03:44] LABS: CREATININE 0.55 MG/DL (0.40-0.90)
[2021-11-20 03:55] LABS: BLOOD UREA NITROGEN 0 MG/DL (7-18)
[2021-11-20] MEDS: dextrose 50%-water 50ml dispensing syringe IV PRN (04:01)
[2021-11-20] MEDS: Potassium Cl inj 20 MEQ in dextrose 5%-water 990 ML IV SCH (04:53)
[2021-11-20] MEDS: potassium CL 10mEq/100ml bag 100 ML IV PRN ×2 (04:53→06:20)
[2021-11-20] MEDS ORDERED: Insulin Reg/NS 100units/100mL 100 ML IV SCH (05:55)
--- NOTE | 2021-11-20 07:00 | NUR ---
Problems reprioritized. Patient report given, questions answered & plan of care reviewed with Nay HYMAN.
--- NOTE | 2021-11-20 08:35 | NUR ---
Page to Dr. Valdivia Pt. desires to AMA [id number] SaraNargis Has informed nursing that she is leaving the hospital AMA this morning despite our rational explanation as to why she shouldn't insulin drip is still on. Refusing care i.e.blood draws ect. Thank You Nya HYMAN [phone]
--- NOTE | 2021-11-20 09:00 | NUR ---
Pt. insists on leaving despite much encouragement to stay and was not willing to wait to talk with Dr. Valdivia this morning. She is instructed to return to the emergency department for further care as it is needed.
== END 2021-11-20 08:55 | disposition left against medical advice (07) | DRG 639 ==
LOC: ER 09:59 → ED HOLD 12:26 → PCU 3S 13:58
PROVIDERS: ADMIT Family Medicine; ATTEND Family Medicine
PROC: BW211ZZ Computerized Tomography (CT Scan) of Abdomen and Pelvis using Low Osmolar Contrast (ICD-10-PCS; 2021-11-17)
PROC: CF1C1ZZ Planar Nuclear Medicine Imaging of Hepatobiliary System, All using Technetium 99m (Tc-99m) (ICD-10-PCS; principal; 2021-11-18)
DX: E10.10 Type 1 diabetes mellitus with ketoacidosis without coma (principal); D72.829 Elevated white blood cell count, unspecified; E03.9 Hypothyroidism, unspecified; F12.90 Cannabis use, unspecified, uncomplicated; F17.210 Nicotine dependence, cigarettes, uncomplicated; B37.9 Candidiasis, unspecified; J39.2 Other diseases of pharynx; Z53.29 Procedure and treatment not carried out because of patient's decision for other reasons; Z79.4 Long term (current) use of insulin; Z88.8 Allergy status to other drugs, medicaments and biological substances; Z79.899 Other long term (current) drug therapy; Z71.6 Tobacco abuse counseling; Z91.19 Patient's noncompliance with other medical treatment and regimen
CPT/HCPCS: 36415; 71045; 74177; 78227; 80048; 80053; 80305; 81001; 81025; 82009; 82800; 82948; 83036; 83605; 83690; 83735; 84100; 84145; 84443; 85025; 86677; 87040; 87081; 96360; 96361; 99285; A6258; A6402; A9537; C9113; G0378; J0696; J0780; J1450; J1650; J1815; J2405; J2765; J2805; J3480; J3490; J7030; J7040; J7042; J7060; J7070; J7120; J7121; Q9967